=== PATIENT | male | born 1935 | race Caucasian/White ===

== ENCOUNTER 2024-02-11 11:53 | Emergency (ER) | payer OTHER, SELFPAY ==
[2024-02-11 12:01] VITALS: BP 183/88
[2024-02-11 12:11] LABS: Glucose - Point of Care 154 mg/dl (70-99)
[2024-02-11 12:56] LABS: % Basophils 0.6 % (0-2); % Eosinophils 2.9 % (0-6); % Immature Granulocytes 0.3 % (0-0.5); % Lymphocytes 19.2 % (20.5-51.1); % Monocytes 5.8 % (1.7-9.3); % Neutrophils 71.2 % (42.2-75.2); Absolute Eosinophils 0.2 10^3/uL (0-0.7); Absolute Lymphocytes 1.2 10^3/uL (1.2-3.4); Absolute Monocytes 0.4 10^3/uL (0.1-0.6); Absolute Neutrophils 4.4 10^3/uL (1.4-6.5); Hematocrit 40.3 % (39.0-52.0); Hemoglobin 13.5 g/dL (13.0-18.0); Mean Corp Hgb Conc. 33.5 g/dL (33.0-37.0); Mean Corpuscular Hgb 32.3 pg (27.0-31.0); Mean Corpuscular Volume 96.4 fL (80.0-94.0); Mean Platelet Volume 10.8 fL (7.4-10.4); Nucleated Red Blood Cells % 0 % (-); Platelet Count 173 10^3/uL (130-400); Red Blood Cell Count 4.18 10^6/uL (4.70-6.10); White Blood Cell Count 6.2 10^3/uL (4.8-10.8)
[2024-02-11 13:07] LABS: ALT (SGPT) 18 U/L (0-50); AST (SGOT) 24 U/L (17-59); Albumin 4.1 g/dl (3.5-5.0); Alkaline Phosphatase 74 U/L (38-126); Blood Urea Nitrogen 24 mg/dl (9-20); Calcium 8.9 mg/dl (8.4-10.2); Carbon Dioxide 28 mmol/L (22-30); Chloride 104 mmol/L (98-107); Glucose 150 mg/dl (70-99); Potassium 4.5 mmol/L (3.5-5.1); Sodium 139 mmol/L (135-145); Total Bilirubin 0.5 mg/dl (0.2-1.3); Total Protein 6.6 g/dl (6.3-8.2); eGFR > 60.00
[2024-02-11 13:21] VITALS: BP 153/77
[2024-02-11 13:55] VITALS: BMI 34.0
[2024-02-11 14:33] VITALS: BP 149/72; BP 150/72; BP 157/93; PULSE 69; PULSE 71; PULSE 73
--- NOTE | 2024-02-11 15:14 | ED.GENMED ---
History of Present Illness
General
Chief Complaint: Dizziness
Source: patient and family
Time Seen by Provider: 02/11/24 13:50
History of Present Illness
History of Present Illness:
88-year-old male who presents after he had a brief episode of lightheadedness while sitting at the table after he ate. He was just sitting there and had just eaten. He otherwise felt normal denies any chest pain or shortness of breath. No
palpitations. [place] normal prior to this. Patient states he then went to get up and his legs felt heavy. He states it only lasted seconds and is resolved. Now feels normal. He denies any abdominal pain or cramping. No nausea vomiting or
diarrhea. Nobody else sick at home. Denies headache or vision changes. Notes a history of aortic aneurysm that has been followed closely by his [employer]. He has a cardiology appointment in 2 days. He states he last had a checked in June and
it was doing well at 4.0 cm. He states it has not been changed in 2 years. Family (daughter) states he looked very pale at the time of the symptoms. He is anticoagulated for A-fib. Denies any history of ACS. No recent GI bleeding. No melena.
No hematochezia.
Past History
Past History
ED Past Medical History: Arrthythmia (Atrial fibrillation), HTN and Hypercholesterolemia
Phy Exam
Physical Exam
Physical Exam:
CONSTITUTIONAL Patient alert and oriented to person, place and time. Well-appearing. Vital signs reviewed.
HEAD atraumatic, normocephalic.
EYES eyelids normal to inspection, Extraocular muscles intact, Conjunctiva normal, Sclera normal.
NECK normal range of motion, Trachea midline, no jugular venous distention.
RESPIRATORY CHEST No respiratory distress noted, Chest expansion equal, Bilateral breath sounds clear.
CARDIOVASCULAR irregularly irregular, Heart sounds normal.
ABDOMEN abdomen nontender, Bowel sounds normal. No distention. No palpable pulsatile masses
BACK normal inspection, no obvious deformities
UPPER EXTREMITY range of motion normal, Motor strength normal, no cyanosis, no edema.
LOWER EXTREMITY range of motion normal, Motor strength normal, no cyanosis, no edema.
NEURO Speech normal, No focal motor deficits, Maxi coma scale 15, Memory normal, Cranial Nerves intact to screening exam. No pronator drift. Gait normal
SKIN skin warm, dry, and normal in color.
Course
Orders/Labs/Results
Orders:
Orders
02/11/24 12:07
Electrocardiogram (*1) Urgent
Reason for Study: Vertigo / Dizzy
CT Head W/o Iv Contrast Urgent
Comment:
Reason For Exam: dizziness
EKG- Treatment ONCE
02/11/24 12:42
Complete Blood Count/With Diff Urgent
Comprehensive Metabolic Panel Urgent
02/11/24 14:31
Orthostatic VS- Treatment ONCE
02/11/24 14:33
CR Chest - 2 Views Urgent
Comment:
Reason For Exam: near syncope, h/o 4cm aortic aneurysm
Abnormal Lab Results
02/11/24 02/11/24
12:09 12:42
RBC 4.18 L 10^6/uL
(4.70-6.10)
MCV 96.4 H fL
(80.0-94.0)
MCH 32.3 H pg
(27.0-31.0)
MPV 10.8 H fL
(7.4-10.4)
Lymphocytes % 19.2 L %
(20.5-51.1)
BUN 24 H mg/dl
(9-20)
Glucose 150 H mg/dl
(70-99)
POC Glucose 154 H mg/dl
(70-99)
02/11/24 12:42
02/11/24 12:42
Vital Signs
Initial and Last Documented VS:
Initial Vital Signs
Temp Pulse Resp BP Pulse Ox
97.5 F 66 18 183/88 97
02/11/24 12:01 02/11/24 12:01 02/11/24 12:01 02/11/24 12:01 02/11/24 12:01
Last Documented Vital Signs
Temp Pulse Resp BP Pulse Ox
97.5 F 75 15 153/77 98
02/11/24 12:01 02/11/24 13:30 02/11/24 14:06 02/11/24 13:21 02/11/24 13:30
MDM/Problems Addressed
Differential Diagnosis Includes:
Acute coronary syndrome, PE, arrhythmia, dehydration, vasovagal syncope, vertigo, CVA
MDM/Problems Addressed:
Near-syncope, suspected vasovagal syncope, chronic A-fib
Acute Exacerbation and/or Progression of Chronic Illness: HTN
*Pulse Oximetry
Patient hypoxic: no
*EKG
Interpreted by ED Provider?: Yes
Interpretation: abnormal
Rate: normal
Rhythm: a-fib
QRS Pattern: normal QRS
Ischemia: non-specific ST changes
*Manager Math Interpretation
Rate: normal
Interpretation: abnormal
Rhythm: a-fib
*Critical Care Note
Total Time (30-74mins, 75-104mins- exclusive of procedures): Not Applicable
Data Reviewed
Source: patient and family
Further Testing Considered But Not Given:
Consider troponin but denies any chest pain or other ACS symptomatology
Patient Management
Escalation/DeEscalation of care consider admission/obs:
Patient appears well. Cerebellar exam normal. Is not orthostatic. Suspect brief vasovagal event while eating. However, advised to return immediately for any worsening symptoms. Patient is requesting go home. Cardiology appointment is planned
for Friday already. Will follow with cardiology. Considered admission given his age and risk factors.. However, patient would like to go home and I do think it is reasonable in light of the fact that his vital signs are normalized and his
symptoms have resolved.
ED Attending Note
-
Portions of this chart may have been created with voice recognition software.� Occasional wrong word or��sound alike� substitutions may have occurred due to the inherent limitations of voice recognition software.
Discharge Plan
Departure
Patient Disposition: Home (Routine Discharge)
Date of Disposition: 02/11/24
Time of Disposition: 15:17
Patient with high blood pressure during this ER visit?: Yes
Discharge Problem:
Near syncope, Chronic atrial fibrillation
Instructions: Near Fainting, BLOOD PRESSURE
Referrals:
Goldy Sheikh MD [Family Provider] -
Activity Restrictions/Additional Instructions:
Please see your [employer] as planned on Friday for follow-up. Return immediately for chest pain, shortness of breath, return of symptoms, palpitations, weakness of any kind or any other concerns.
Interventions
Interventions:
ED- Fall Risk Assessment Last Done: 02/11/24 13:55
ED- Neurological Assessment Last Done: 02/11/24 13:55
ED- Cardiac Assessment Last Done: 02/11/24 13:55
ED Swallowing Screen Last Done: 02/11/24 13:55
Discharge Date and Time
Print Language: SLOVENIAN
== END 2024-02-11 15:45 | disposition home or self-care (01) ==
LOC: EMR 11:53
PROVIDERS: Emergency Medicine; EMERGENCY PHYSICIAN Emergency Medicine; FAMILY PHYSICIAN Internal Medicine
DX: R55 Syncope and collapse (principal); I48.20 Chronic atrial fibrillation, unspecified; I11.9 Hypertensive heart disease without heart failure; E78.00 Pure hypercholesterolemia, unspecified
CPT/HCPCS: 99284; 70450; 71046; 80053; 82962; 85025; 93005